=== PATIENT | female | born 1975 | race Caucasian/White ===

== ENCOUNTER 2016-12-12 03:03 | Emergency (ER) | payer MEDICAID ==
[~2016-12-12] VITALS: Ht 154.9 cm; Wt 104.3 kg
[2016-12-12 03:03] VITALS: BP 157/107; PULSE 86; RESP 20; TEMP 97.4; O2SAT 97
[2016-12-12] MEDS ORDERED: IBUPROFEN 800 MG TABLET PO ONE (03:30)
[2016-12-12 03:48] VITALS: BP 136/87; PULSE 84; RESP 18; TEMP 97.4; O2SAT 98
== END 2016-12-12 03:48 | disposition home or self-care (01) ==
LOC: SED 03:03
DX: S16.1XXA Strain of muscle, fascia and tendon at neck level, initial encounter (principal); H92.01 Otalgia, right ear; R21 Rash and other nonspecific skin eruption; R03.0 Elevated blood-pressure reading, without diagnosis of hypertension; X58.XXXA Exposure to other specified factors, initial encounter; Y93.89 Activity, other specified; Y92.89 Other specified places as the place of occurrence of the external cause; Y99.8 Other external cause status
CPT/HCPCS: 99283